=== PATIENT | female | born 1955 | race Caucasian/White ===

== ENCOUNTER 2022-05-04 10:31 | Outpatient (CLI) | payer OTHER, SELFPAY ==
[2022-05-04 15:31] LABS: Cholesterol* 284 mg/dL (90-199)
[2022-05-04 15:32] LABS: HDL Cholesterol* 88 mg/dL (>=50); LDL Cholesterol Calculated 156 mg/dL (<100); Triglycerides* 198 mg/dL (40-149)
== END 2022-05-04 10:32 | disposition home or self-care (01) ==
PROVIDERS: PCP Obstetrics & Gynecology; Visit Provider Obstetrics & Gynecology
DX: Z13.6 Encounter for screening for cardiovascular disorders (principal)
CPT/HCPCS: 80061

== ENCOUNTER 2022-05-15 12:05 | Outpatient (CLI) | payer OTHER, SELFPAY | END 2022-05-15 12:06 | disposition home or self-care (01) | LOC: OP CLINIC 12:07 | PROVIDERS: PCP Obstetrics & Gynecology; Visit Provider Surgery | DX: Z12.11 Encounter for screening for malignant neoplasm of colon (principal); Z83.71 Family history of colonic polyps | CPT/HCPCS: 45378; 99153; J2250; J2405; J3010 ==

== ENCOUNTER 2022-06-06 17:50 | Outpatient (CLI) | payer OTHER, SELFPAY ==
--- NOTE | 2022-06-06 18:00 | CRLHL7_ITS ---
For Patients: As a result of the Cures Act, medical imaging exams and procedure reports are released immediately into your electronic medical record. You may view this report before your referring provider. If you have questions, please contact your health care provider. BILATERAL SCREENING MAMMOGRAM WITH COMPUTER-AIDED DETECTION TECHNIQUE: CC and MLO views were obtained. These mammographic images have been obtained using full-field digital technique. These mammographic images were interpreted with the benefit of computer-aided detection. COMPARISON FILM: 01/12/2011. FINDINGS: The breasts are heterogeneously dense, which may obscure small masses IMPRESSION: There is no radiographic evidence for malignancy. ASSESSMENT: BI-RADS Category 1: Negative RECOMMENDATION: Routine screening mammogram in 1 year. A lay language report of this examination will be provided to the patient. Bryan Payne M.D. Diagnostic Radiologist [email or web address] PARISA/mildred / be/Dictated by: Bryan Payne MD @ 06/07/2022 12:37:00 PM (Electronically Signed)
== END 2022-06-06 17:51 | disposition home or self-care (01) ==
PROVIDERS: PCP Obstetrics & Gynecology
DX: Z12.31 Encounter for screening mammogram for malignant neoplasm of breast (principal); R92.2 Inconclusive mammogram
CPT/HCPCS: 77063; 77067